=== PATIENT | female | born 1990 | race Caucasian/White ===

== ENCOUNTER 2024-11-24 19:54 | Emergency (ER) | payer SELFPAY ==
[~2024-11-24] VITALS: Ht 162.6 cm; Wt 81.7 kg
[~2024-11-24 19:54] MED LIST: ACET500; AMOCLA875 PO; AMOX500 PO; HYDACE5 PO; IBUP800; MULVITMINE PO; NAPR500 PO; NITR100CA PO; OXYACE7.5T PO; RXOXYACE PO; [UNRECOGNIZED DRUG - REMARK]
[2024-11-24] MEDS ORDERED: Amoxicillin875 MG PO (20:20)
== END 2024-11-24 20:50 | disposition home or self-care (01) ==
LOC: ER 19:54
DX: K02.9 Dental caries, unspecified (principal); K04.01 Reversible pulpitis; Z88.2 Allergy status to sulfonamides; Z91.048 Other nonmedicinal substance allergy status; Z79.899 Other long term (current) drug therapy
CPT/HCPCS: 99282; A9270